=== PATIENT | female | born 1990 | race Caucasian/White ===

== ENCOUNTER 2016-06-18 20:12 | Emergency (ER) | payer OTHER ==
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
[2016-06-18] MEDS ORDERED: IBUPROFEN 200 MG TAB PO ONE (20:56)
[2016-06-18 21:25] VITALS: BP 130/84; PULSE 80; RESP 20; TEMP 98.4; O2SAT 99
== END 2016-06-18 21:52 | disposition home or self-care (01) ==
LOC: CED 20:12
DX: S16.1XXA Strain of muscle, fascia and tendon at neck level, initial encounter (principal); V43.51XA Car driver injured in collision with sport utility vehicle in traffic accident, initial encounter; Y92.410 Unspecified street and highway as the place of occurrence of the external cause
CPT/HCPCS: 72125-PO; G0463-PO; L0172